=== PATIENT | male | born 1995 | race African-American/Black ===

== ENCOUNTER 2025-03-01 12:57 | Emergency (ER) | payer SELFPAY ==
[~2025-03-01] VITALS: Ht 185.4 cm; Wt 86.4 kg
[2025-03-01 13:06] VITALS: TEMP 98.8
[2025-03-01] MEDS: SODIUM CHLORIDE 0.9% 1,000 ML IV ONE (13:31)
[2025-03-01 13:39] LABS: PLATELET COUNT (AUTO) 292 K/uL (150-450); RED BLOOD CELL COUNT(AUTO) 6.49 MIL/uL (4.50-5.90); RED CELL DISTRIBUTION WIDTH 14.2 % (11.5-14.5); WHITE BLOOD COUNT (AUTO) 4.5 K/uL (4.5-11.0)
[2025-03-01 13:50] LABS: CALCIUM, TOTAL 8.5 mg/dL (8.8-10.5); CREATININE 1.37 mg/dL (0.60-1.30); GLOMERULAR FILTR. RATE CALC > 60 mL/min (>60); GLUCOSE,RANDOM 172 mg/dL (70-110); SODIUM SERUM 141 mmol/L (136-145); UREA NITROGEN, BLOOD 21 mg/dL (7-18)
[2025-03-01 13:57] LABS: ALCOHOL, BLOOD (SERUM) 374 mg/dL (0-10)
[2025-03-01 14:00] LABS: TROPONIN I-HIGH SENSITIVITY 8 ng/L (<76)
[2025-03-01 14:23] LABS: ASPARTATE AMINOTRANSFERASE 60 U/L (15-37); CREATINE KINASE, TOTAL ONLY 146 U/L (39-308); TOTAL PROTEIN, SERUM 8.1 g/dL (6.4-8.2)
[2025-03-01 16:12] LABS: APPEARANCE,URINE CLEAR (CLEAR); GLUCOSE, URINE (UA) 70-100 mg/dL (NEGATIVE); LEUKOCYTE ESTERASE ,URINE NEGATIVE (NEGATIVE); NITRATE,URINE NEGATIVE (NEGATIVE); OCCULT BLOOD,URINE NEGATIVE (NEGATIVE); PH,URINE DRUG SCREEN 6.0 (5.0-8.0); SPECIFIC GRAVITIY, URINE 1.036 (1.003-1.030)
[2025-03-01 16:15] VITALS: BP 131/78; PULSE 90; RESP 19; O2SAT 99
[2025-03-01 16:24] LABS: SQUAMOUS EPITHELIAL CELL,UR Rare /LPF (None Seen)
[2025-03-01 16:25] LABS: AMPHET/METH SCREEN,URINE NEGATIVE (NEGATIVE); BARBITURATE SCREEN, URINE NEGATIVE (NEGATIVE); CANNABINOID SCREEN,URINE POSITIVE (NEGATIVE); COCAINE SCREEN,URINE NEGATIVE (NEGATIVE); METHADONE SCREEN, URINE NEGATIVE (NEGATIVE)
[2025-03-01 16:27] LABS: ALCOHOL, URINE DRUG SCREEN POSITIVE (NEGATIVE)
== END 2025-03-01 17:49 | disposition home or self-care (01) ==
LOC: EMS 12:58
DX: F10.129 Alcohol abuse with intoxication, unspecified (principal); R41.0 Disorientation, unspecified; R53.83 Other fatigue; Y90.8 Blood alcohol level of 240 mg/100 ml or more
CPT/HCPCS: 99285; 70450; 96360; 71045; 80048; 80076; 82550; 83735; 83880; 84484; 85025; 36415; 72125; 93005; 80307; 81001; G0480; J7030